=== PATIENT | male | born 1985 | race American Indian/Alaskan Native ===

== ENCOUNTER 2019-07-22 18:29 | Emergency (ER) | payer SELFPAY ==
[2019-07-22 18:40] VITALS: BP 136/80
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
[2019-07-22] MEDS ORDERED: HYDROcodone/ACETAMINOPHEN 5-325 MG TAB PO ONE (19:01)
[2019-07-22] MEDS ORDERED: IBUPROFEN 600 MG TAB PO ONE (19:01)
[2019-07-22] MEDS ORDERED: ONDANSETRON 4 MG ODT TAB PO ONE (19:01)
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
--- NOTE | 2019-07-22 19:56 | XRay Report ---
Lumbar spine-2 views INDICATION: pain. COMPARISON: None. IMPRESSION: Mild dextroscoliosis centered at L4 with normal AP alignment. No significant discogenic DJD or facet arthropathy. No acute osseous or soft tissue abnormality. Signer Name: Prosper Jean MD Signed: 07/22/2019 7:52 PM Workstation Name: [id number]
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
== END 2019-07-22 21:15 | disposition home or self-care (01) ==
LOC: ED 18:29
DX: S83.8X2A Sprain of other specified parts of left knee, initial encounter (principal); S20.211A Contusion of right front wall of thorax, initial encounter; M62.830 Muscle spasm of back; M62.838 Other muscle spasm; Z98.890 Other specified postprocedural states; Z79.899 Other long term (current) drug therapy; V89.2XXA Person injured in unspecified motor-vehicle accident, traffic, initial encounter; Y93.89 Activity, other specified; Y92.410 Unspecified street and highway as the place of occurrence of the external cause; Y99.8 Other external cause status
CPT/HCPCS: 72040; 72100; Q0162